=== PATIENT | male | born 1935 | race Hispanic/Latino ===

== ENCOUNTER 2019-02-15 11:40 | Observation (INO) | payer MEDICARE ==
[2019-02-13 11:57] LABS: BASOPHILS % 0.5 % (0.0-1.0); EOSINOPHILS # (AUTO) 0.2 (0.0-0.4); HEMATOCRIT 39.8 % (38.2-49.6); HEMOGLOBIN 13.9 g/dL (14.0-18.0); LYMPHOCYTES # (AUTO) 1.4 (1.0-3.2); MEAN CORPUSCULAR HEMOGLOBIN 32.6 pg (28-32); MEAN CORPUSCULAR HGB CONC 34.9 g/dL (31-35); MEAN CORPUSCULAR VOLUME 93.4 fL (81-99); MONOCYTES # (AUTO) 0.7 (0.2-0.8); MONOCYTES % 8.2 % (4.4-11.3); NEUTROPHILS # (AUTO) 5.7 (2.1-6.9); NEUTROPHILS % 70.7 % (38.7-80.0); PLATELET COUNT 175 x10e3/uL (140-360); RED BLOOD COUNT 4.26 x10e6/uL (4.3-5.7); RED CELL DISTRIBUTION WIDTH 13.2 % (11.7-14.4)
[2019-02-13 12:16] LABS: INR 0.92; PROTHROMBIN TIME 12.9 seconds (11.9-14.5)
[2019-02-13 12:25] LABS: ALBUMIN 3.9 g/dL (3.5-5.0); ALBUMIN/GLOBULIN RATIO 1.1 (0.8-2.0); ANION GAP 14.2 mmol/L (8-16); CALCIUM 9.4 mg/dL (8.4-10.2); CREATININE, SERUM 1.21 mg/dL (0.72-1.25); POTASSIUM 4.2 mmol/L (3.5-5.1)
[~2019-02-15] VITALS: Ht 167.6 cm; Wt 63.5 kg
[2019-02-15] VITALS (12 sets, daily range): BP systolic 127–138; BP diastolic 61–77
[2019-02-15] MEDS ORDERED: VERAPAMIL HCL 2.5 MG/ML 2 ML VIAL ONE (11:52)
[2019-02-15] MEDS ORDERED: LIDOCAINE HCL 2% LOCAL 20 ML VIAL ONE (11:52)
[2019-02-15] MEDS ORDERED: FENTANYL CITRATE/PF 100MCG/2 ML INJ ONE (11:52)
[2019-02-15] MEDS ORDERED: MIDAZOLAM HCL 2 MG/2 ML VIAL ONE (11:52)
[2019-02-15] MEDS ORDERED: IOPAMIDOL 370 MG/ML 200 ML INFUS..BTL INJ ONE (11:54)
[2019-02-15] MEDS ORDERED: SODIUM CHLORIDE 0.9% 1000ML 1,000 ML ONE (11:54)
[2019-02-15] MEDS ORDERED: HEPARIN SOD/SOD CHLORIDE 2,000 ML ONE (11:54)
[2019-02-15] MEDS ORDERED: LEVOTHYROXINE50 MCG PO (12:36)
[2019-02-15] MEDS ORDERED: LISINOPRIL10 MG PO (12:36)
[2019-02-15] MEDS ORDERED: ASPIR 8181 MG (12:36)
[2019-02-15] MEDS ORDERED: AMLODIPINE BESY10 MG PO (12:36)
[2019-02-15] MEDS ORDERED: TICAGRELOR 90 MG TABLET ONE (13:50)
[2019-02-15] MEDS ORDERED: ASPIRIN 325 MG TAB ONE (13:50)
--- NOTE | 2019-02-15 14:12 | NUR ---
1412 bedside report received from Demarco COURTNEY. [facility] Fix LAD x1 Dr Ellison over night Tel obsv. bed ordered Rt arm TR band approach. Alert oriented and appropriate, PERRLA, respirations even and unlabored to room air. Pulses x4 extremeties equal and strong. Pedal pulses PT/DP XXXXX and marked. Cap fill brisk < 3 sec. Skin warm and dry integrity appears D/I. IV 20g to left hand at 50cc hr via pump till 12midnight the saline lock. presents healthy w/o s/s of infiltration or complaint. Abdomen soft and supple. pt offered toileting, denies need to urinate or defecate. No personal affects with patient. Family at bedside Daughter Amber Pt and family verbalizes understanding of POC. Prescriptions,Tr band care teaching tool eexplained and sent card given to her. Dr Ellison spoke with family aware will be staying night Family speaks Croatian pt German only. Currently w/o complaint of pain or need. ds/rn
--- NOTE | 2019-02-15 15:00 | NUR ---
1500pm RADIAL Compression removal: Initial Cuff volume 13 cc 1500pm -2 cc Removed No hematoma/bleeding noted with normal neurovascular function. 1515pm -2 cc Removed No hematoma/ bleeding noted with normal neurovascular function. 1530pm -2 cc Removed No hematoma/bleeding noted with normal neurovascular function. 1545pm -2cc Removed No hematoma/ bleeding noted with normal neurovascular function. Air removal completed. Stasis achieved sterile 2x2,Tegaderm, Coban dressing No hematoma, bleeding noted with normal neurovascular function. Wrist splint in place. Pt instructed on POC. Ds/Rn
--- NOTE | 2019-02-15 16:00 | NUR ---
1600pm pt transferred to tele observation bed 1113.Report handoff completed to Karin COURTNEY and tele rm.No down time necessary ,pt instructed to call for assistance . Call light at bedside and bed in low position Rn at bedside. No gross issue pain,pallor pressure or dysrhythmia. Rt Radial arm splint in place with neuro vascular function stable,. No hematoma or oozing Pt and family aware of POC. ds/rn
--- NOTE | 2019-02-15 22:50 | NUR ---
Assessment done.no resp.distress.no pain voiced.left hand iv patent.voided.right radius splint is in place.bed locked and in lowest position.phone and call light within n reach.instructed to call for assistance as needed.
[2019-02-15] MEDS: HYDROCODONE/APAP 5MG-325MG TAB PO PRN (22:58)
[2019-02-16] VITALS: BP 149/71
[2019-02-16 04:00] VITALS: BP 133/62
--- NOTE | 2019-02-16 07:10 | NUR ---
bed side shift report given to the oncoming rn.stable condition.
--- NOTE | 2019-02-16 08:04 | NUR ---
Received patient this morning and a/ox3, rounds completed and no resp distress, call light within reach, bed in low locked position, will monitor.
[2019-02-16] MEDS ORDERED: ASPIRIN 81 MG CHEW TAB PO ONE (09:00)
[2019-02-16] MEDS ORDERED: TICAGRELOR 90 MG TABLET PO SCH (09:00)
[2019-02-16] MEDS ORDERED: ASPIRIN 325 MG TAB PO ONE (09:00)
[2019-02-16] MEDS: HYDROCODONE/APAP 5MG-325MG TAB PO PRN (09:19)
[2019-02-16 09:24] VITALS: BP 133/62
[2019-02-16 10:38] VITALS: BP 129/61
--- NOTE | 2019-02-16 10:57 | NUR ---
Patient with splint in place to right hand, s/p C, pains well managed. Contacted Dr. Lew regarding discharge plans and whe states will discharge some time today. Will f/u.
[2019-02-16 12:10] VITALS: BP 143/66
[2019-02-16] MEDS ORDERED: BRILINTA90 MG PO (12:36)
--- NOTE | 2019-02-16 14:18 | NUR ---
Patient alert and responsive, no resp distress and rounds by Dr. Lew. Removed splint to patient' right hand, no bleeding noted, pains well managed and provided patient with prescriptions, discharge summary provided to patient. IV line removed and cath tip in place, dressing applied, educated patient on bleeding precautions, will monitor.
--- NOTE | 2019-04-05 10:31 | Operative Report ---
DATE OF PROCEDURE: 02/15/2019 SURGEON: Jorge Ellison DO PROCEDURES PERFORMED: 1. Conscious sedation, 45 minutes. 2. Selective coronary angiography x2. 3. Left heart catheterization. 4. Percutaneous transluminal coronary angioplasty and drug-eluting stent placement to the proximal left anterior descending coronary artery. PREPROCEDURE DIAGNOSIS: Abnormal stress test with apical ischemia. POSTPROCEDURE DIAGNOSIS: Coronary artery disease. ESTIMATED BLOOD LOSS: Less than 20 mL. SPECIMENS REMOVED: None. PROCEDURE IN DETAIL: After informed consent was obtained, the patient was brought to the cardiac catheterization laboratory in a fasting and nonsedated state. His right wrist was prepped and draped in the usual sterile fashion. A 2% lidocaine was infiltrated over the right radial artery for local anesthesia. Using micropuncture needle, the right radial artery was accessed via modified Seldinger technique and a 5/6 slender sheath was placed. Next, diagnostic coronary angiography and left heart catheterization was performed using a TIG catheter. This revealed a significant 70% proximal LAD lesion and a decision was made to perform percutaneous coronary intervention. The patient received systemic heparin for therapeutic anticoagulation. Next, the lesion was crossed with a Luge wire and then pre-dilated with a 2.5 x 12 balloon. Next, the lesion was stented with a 3 x 22 Resolute [place] drug-eluting stent. The stent was then post dilated with a 3.5 noncompliant balloon. Final angiography revealed excellent stent apposition with brisk ALEX-3 flow distally. There was no evidence of wedge dissection, distal embolization, or vessel perforation at the end of the case. The patient tolerated the procedure well with no immediate complications and transferred back to his room in stable condition. Hemostasis was achieved via TR band. PROCEDURAL FINDINGS: 1. Left main coronary artery is patent without significant disease. 2. Left anterior descending coronary artery has a proximal 70% stenosis. The midportion of the LAD has a [id number] myocardial bridge. 3. Left circumflex coronary artery provides two obtuse marginal vessels. The left circumflex itself has a mid 50% stenosis. 4. The right coronary artery is a dominant vessel and provides a small posterior descending coronary artery. The proximal-mid RCA has a 30% stenosis. The distal RCA just prior to the bifurcation of the posterolateral and PDA has a 60% stenosis. The midportion of the PDA itself has a 60% to 70% stenosis. However, this vessel was small. 5. Left ventricular end-diastolic pressure is 15 mmHg. No aortic valve gradient present upon pullback. INTERVENTIONAL RESULTS: Successful percutaneous coronary intervention of the left anterior descending coronary artery. Pre-PCI ALEX flow was 2. Post-PCI ALEX flow was 3. Postprocedure stenosis less than 10%. IMPRESSION: 1. Coronary artery disease. 2. Myocardial bridge. RECOMMENDATIONS: The patient will be initiated on dual antiplatelet therapy and beta blockers. Continue all the current cardiovascular medications. Jorge Ellison DO BM/MODL /[id number]
== END 2019-02-16 14:18 | disposition home or self-care (01) ==
LOC: CATH LAB 11:40 → PACU V 14:30 → MED/SURG2 16:09 → MED/SURG 16:10
PROVIDERS: ADMIT Internal Medicine Cardiovascular Disease; ATTEND Internal Medicine Cardiovascular Disease
DX: I25.10 Atherosclerotic heart disease of native coronary artery without angina pectoris (principal); Z01.812 Encounter for preprocedural laboratory examination; I10 Essential (primary) hypertension; Z83.3 Family history of diabetes mellitus; Z82.49 Family history of ischemic heart disease and other diseases of the circulatory system; I35.1 Nonrheumatic aortic (valve) insufficiency; R94.39 Abnormal result of other cardiovascular function study; Q24.5 Malformation of coronary vessels
CPT/HCPCS: 93458; C9600; 36415; 80053; 85025; 85610; 92928; C1725; C1769; C1874; C1887; G0378; J2001; J2250; J3010; J7030; Q9967

== ENCOUNTER → 2023-08-25 | Outpatient (REF) | payer MEDICARE ==
[~2023-08-25] MED LIST: AMLODIPINE BESY10 MG PO; ASPIR 8181 MG; BRILINTA90 MG PO; IOPAMIDOL 370 MG/ML 100 ML INFUS..BTL INJ ONE; LEVOTHYROXINE50 MCG PO; LISINOPRIL10 MG PO
[2023-08-25 09:14] LABS: CREATININE, SERUM 1.21 mg/dL (0.72-1.25)
== END ==
LOC: NM 07:53
PROVIDERS: ATTEND Urology
DX: R97.20 Elevated prostate specific antigen [PSA] (principal)
CPT/HCPCS: 36415; 74177; 78306; 82565; 84520; A9503; Q9967